=== PATIENT | female | born 1995 | race African-American/Black ===

== ENCOUNTER → 2020-10-24 | Outpatient (CLI) | payer OTHER | END | disposition home or self-care (01) | LOC: PRENATAL 09:00 | PROVIDERS: ATTEND Obstetrics & Gynecology Maternal & Fetal Medicine | DX: O35.0XX1 Maternal care for (suspected) central nervous system malformation in fetus, fetus 1 (principal); O35.3XX1 Maternal care for (suspected) damage to fetus from viral disease in mother, fetus 1; O98.513 Other viral diseases complicating pregnancy, third trimester; O36.8131 Decreased fetal movements, third trimester, fetus 1; Z36.89 Encounter for other specified antenatal screening; Z3A.32 32 weeks gestation of pregnancy ==

== ENCOUNTER 2020-11-11 18:14 | Outpatient (CLI) | payer OTHER ==
[2020-11-11] MEDS ORDERED: PRENATAL TABLE1 EAC1 PO (19:06)
[2020-11-11] MEDS ORDERED: IRON325 MG PO (19:06)
== END 2020-11-12 11:15 | disposition home or self-care (01) ==
LOC: OBS/DEL 18:14
PROVIDERS: ATTEND Specialist
DX: O60.03 Preterm labor without delivery, third trimester (principal); O34.211 Maternal care for low transverse scar from previous cesarean delivery; Z3A.35 35 weeks gestation of pregnancy

== ENCOUNTER 2020-12-03 11:45 | Inpatient (IN) | payer OTHER ==
[~2020-12-03] VITALS: Ht 152.4 cm; Wt 76.7 kg
[~2020-12-03 11:45] MED LIST: IRON325 MG PO; PRENATAL TABLE1 EAC1 PO
[2020-12-04] MEDS ORDERED: PRENAT PO (09:14)
[2020-12-04] MEDS ORDERED: IRO PO (09:15)
[2020-12-09] MEDS ORDERED: IRON236 MG PO (09:12)
[2020-12-09] MEDS ORDERED: PRENATAL + DHA1 EAC1 PO (09:12)
== END 2020-12-09 13:58 | DRG 788 ==
LOC: SURH 12-06 07:00 → O/R 12-06 08:37 → SURH 12-06 11:45 → OB/GYN 12-06 16:12
PROVIDERS: ADMIT Specialist; ATTEND Specialist
PROC: 4A1HXFZ Monitoring of Products of Conception, Cardiac Rhythm, External Approach (ICD-10-PCS; 2020-12-06)
PROC: 10D00Z1 Extraction of Products of Conception, Low, Open Approach (ICD-10-PCS; principal; 2020-12-06 07:00)
DX: O65.5 Obstructed labor due to abnormality of maternal pelvic organs (principal); O34.211 Maternal care for low transverse scar from previous cesarean delivery; Z3A.39 39 weeks gestation of pregnancy; Z37.0 Single live birth